=== PATIENT | female | born 1995 | race Caucasian/White ===

== ENCOUNTER 2024-11-16 07:19 | Inpatient (IN) ==
[2024-11-16] MEDS ORDERED: Lidocaine 1% VIAL 10 MG/ML 30 ML VIAL INJ PRN (07:58)
[2024-11-16] MEDS ORDERED: Prochlorperazine 5 mg/ml 2 ml VIAL (10 mg) IV PRN (07:58)
[2024-11-16] MEDS ORDERED: Nalbuphine 10 MG/ML 1 ML VIAL IV PRN (07:58)
[2024-11-16] MEDS: Lactated Ringers 1000 ml BAG 1,000 ML IV ONE ×2 (12:29→21:42)
[2024-11-16] MEDS: Buffered Lidocaine 1% SYRIN 1 ml INTRADERM ONE (12:29)
[2024-11-16 12:56] LABS: ABS Monocytes 0.6 10^3/uL (0.0-0.9); ABS Neutrophils 8.6 10^3/uL (1.5-7.6); Eosinophil % 0.2 %; Hematocrit 39.9 % (35-45); Lymphocyte % 9.4 %; Mean Corpuscular Hemoglobin 32.7 pg (27-33); Mean Corpuscular Volume 93.3 fL (80-97); Mean Platelet Volume 8.8 fL (7.5-11.2); Platelet Count 168 10^3/uL (150-450); Red Blood Count 4.28 10^6/uL (3.63-4.92); Red Cell Distribution Width 13.4 % (12-17); White Blood Count 10.1 10^3/uL (3.8-11.8)
[2024-11-16] MEDS: Lactated Ringers 1000 ml BAG 1,000 ML IV SCH ×2 (17:56→21:42)
[2024-11-16] MEDS: OBEPIDURAL (200 ML) 200 ML EPIDURAL ONE (17:57)
[2024-11-16] MEDS ORDERED: Phenylephrine 40 mcg/mL 10mL (400mcg) SYRINGE IV PUSH PRN ×2 (18:20)
[2024-11-16] MEDS ORDERED: Sodium Citrate/Citric Acid LIQ 15 ML UDC PO PRN (18:20)
[2024-11-16] MEDS ORDERED: Glycerin ADULT 2.4 gm SUPP PR PRN (21:25)
[2024-11-16] MEDS: Lidocaine 2% w/ EPI 1:200,000 MPF 20 ML SDV VIAL ONE (21:44)
[2024-11-16] MEDS: Lidocaine 1.5% EPI 1:200,000 30 ML SDV ONE (21:44)
[2024-11-16] MEDS: OBEPIDURAL (200 ML) 200 ML EPIDURAL SCH (21:44)
[2024-11-16] MEDS: Phenylephrine 40 mcg/mL 10mL (400mcg) SYRINGE ONE (21:44)
[2024-11-16] MEDS ORDERED: Lactated Ringers 1000 ml BAG 1,000 ML IV SCH (22:00)
[2024-11-16] MEDS: Witch Hazel PAD JAR TOPICAL PRN (23:57)
[2024-11-16] MEDS: Dibucaine 1% OINT 28.35 GM TUBE PR PRN (23:57)
[2024-11-17 08:02] LABS: ABS Lymphocytes 1.1 10^3/uL (1.0-4.8); ABS Monocytes 0.8 10^3/uL (0.0-0.9); ABS Neutrophils 7.8 10^3/uL (1.5-7.6); Eosinophil % 0.5 %; Hematocrit 35.9 % (35-45); Hemoglobin 12.6 g/dL (11.5-14.3); Lymphocyte % 11.3 %; Mean Corpuscular Hgb Conc 35.1 g/dL (31-36); Mean Corpuscular Volume 94.1 fL (80-97); Mean Platelet Volume 8.5 fL (7.5-11.2); Platelet Count 144 10^3/uL (150-450); Red Blood Count 3.82 10^6/uL (3.63-4.92); Red Cell Distribution Width 13.5 % (12-17); White Blood Count 9.7 10^3/uL (3.8-11.8)
[2024-11-17] MEDS: Oxytocin in NS 30,000 MILLI.UNIT/500 ML BAG IV ONE (18:19)
[2024-11-17] MEDS: Oxytocin in NS 30,000 MILLI.UNIT/500 ML BAG IV SCH (18:19)
[2024-11-17] MEDS: Lidocaine 1% VIAL 10 MG/ML 30 ML VIAL ONE (18:19)
[2024-11-18 07:35] VITALS: BP 126/78
[2024-11-18] MEDS: Measles, Mumps,Rubella VACC 0.5 ML/VIAL SUBCUT ONE (08:20)
== END 2024-11-18 14:24 | disposition home or self-care (01) | DRG 807 ==
LOC: MCHOBOUT 07:19 → MCHOB 07:54
PROVIDERS: ADMIT Obstetrics & Gynecology; ATTEND Obstetrics & Gynecology